=== PATIENT | female | born 1940 | race Caucasian/White ===

== ENCOUNTER → 2020-05-03 | Outpatient (CLI) | payer MEDICARE, OTHER, SELFPAY | END | disposition home or self-care (01) | LOC: LABSPEC 13:47 | DX: Z01.818 Encounter for other preprocedural examination (principal) | CPT/HCPCS: 87635; C9803; G2023; U0003 ==

== ENCOUNTER 2022-04-11 11:23 | Emergency (ER) | payer MEDICARE, OTHER, SELFPAY ==
[2022-04-11] VITALS (7 sets, daily range): BP systolic 128–160; BP diastolic 60–97; PULSE 67–76; RESP 14–18; TEMP 37.1; O2SAT 95–100; BMI 38.7
--- NOTE | 2022-04-11 11:27 | NURSING ---
NO OLD EKGS
--- NOTE | 2022-04-11 12:15 | EDS_ITS ---
HPI History of Present Illness Chief Complaint: Chest Pain Informant: patient Onset/Context/Timing Onset: Today Activity at onset: sudden and rest Timing: Continuous Quality: Positive for Heaviness Location: Substernal Worsened By: Nothing Relieved By: NTG Associated Symptoms: Positive for Nausea, Lightheadedness and Acid Reflux; Negative for Vomiting, Diaphoresis, Dyspnea, Cough, Fever or Palpitations Narrative Narrative: Patient presents with chest pain that began today. Patient states she was sitting when her pain began. Patient states it began rather suddenly. Patient describes as a heaviness. Patient states it is over the substernal area. Patient states it got better with nitroglycerin that was given by EMS. Patient states nothing makes it worse. Patient admits to some nausea but denies any vomiting. Patient also admits to some lightheadedness and dizziness with the pain. Patient also states she has some reflux today. Patient denies any cough or shortness of breath. CVD Risk Factors: Positive for Hypertension and Diabetes; Negative for Hypercholesterolemia, Family History 1' </=55 or Smoking PE Risk Factors: Negative for Recent Travel/Surgery, Recent Immobilization, Prior DVT or PE, Cancer or OCP + Smoking + >/=35 [facility] Medical History (Updated 04/11/22 @ 16:[address] Carlitos Mario, DO) Afib Anemia Anxiety and depression Aortic valve calcification ARDS (adult respiratory distress syndrome) Carotid artery stenosis Chronic kidney disease (CKD) CVA (cerebral vascular accident) Degenerative cervical spinal stenosis Degenerative lumbar spinal stenosis Diabetes mellitus, type II Fatty liver Fibromyalgia GERD (gastroesophageal reflux disease) Goiter HTN (hypertension) Hyperlipidemia Hyperparathyroidism Hypothyroidism IBS (irritable bowel syndrome) Mitral valve regurgitation Obesity THA (obstructive sleep apnea) Primary oral squamous cell carcinoma RLS (restless legs syndrome) Trismus Home Medications amitriptyline 50 mg tablet 50 mg PO QHS 04/11/22 [History Last Taken Unknown] aspirin 81 mg chewable tablet 81 mg PO DAILY 04/11/22 [History Last Taken Unknown] calcitriol 0.25 mcg capsule 0.25 mcg PO DAILY 04/11/22 [History Last Taken Unknown] carvedilol 25 mg tablet 25 mg PO BID 04/11/22 [History Last Taken Unknown] cetirizine 10 mg capsule 10 mg PO DAILY 04/11/22 [History Last Taken Unknown] clonazepam 0.5 mg tablet 0.5 mg PO QHS 04/11/22 [History Last Taken Unknown] docusate sodium 100 mg capsule 100 mg PO DAILY 04/11/22 [History Last Taken Unknown] duloxetine 60 mg capsule,delayed release 60 mg PO DAILY 04/11/22 [History Last Taken Unknown] glimepiride 1 mg tablet (Amaryl) 1 mg PO DAILY 04/11/22 [History Last Taken Unknown] hydrocodone-acetaminophen 5-325mg 5mg-325mg 1 tab PO Q8H PRN Pain 04/11/22 [History Last Taken Unknown] isosorbide mononitrate 30 mg tablet,extended release 24 hr 30 mg PO DAILY 04/11 [History Last Taken Unknown] levothyroxine 50 mcg tablet 50 mcg PO DAILY 04/11/22 [History Last Taken Unknown] losartan 25 mg tablet (Cozaar) 25 mg PO DAILY 04/11/22 [History Last Taken Unknown] nitroglycerin 0.4 mg sublingual tablet (Nitrostat) 0.4 mg sublingual Q5M PRN Pain 04/11/22 [History Last Taken Unknown] nystatin 100,000 unit/mL oral suspension 5 ml buccal TID 04/11/22 [History Last Taken Unknown] pantoprazole 40 mg tablet,delayed release 40 mg PO DAILY 04/11/22 [History Last Taken Unknown] pitavastatin calcium 2 mg tablet (Livalo) 2 mg PO QPM 04/11/22 [History Last Taken Unknown] pregabalin 100 mg capsule (Lyrica) 100 mg PO BID 04/11/22 [History Last Taken Unknown] ropinirole 4 mg tablet 4 mg PO QHS 04/11/22 [History Last Taken Unknown] Allergy/AdvReac Type Severity Reaction Status Date / Time Penicillins Allergy Rash Verified 04/11/22 11:33 gluten AdvReac Upset Verified 04/11/22 11:33 Stomach levofloxacin [From Levaquin] AdvReac Upset Verified 04/11/22 11:33 Stomach STEROIDS AdvReac Other Uncoded 04/11/22 11:33 Family History no significant family his no significant family history Surgical History (Updated 04/11/22 @ 12:[address] Carlitos Mario DO) History of coronary artery bypass graft Social History Smoking Status: Never smoker ROS ROS ED Constitutional Constitutional ED: Denies chills or fever(s) Eyes Eyes: Denies blurry vision or change in vision ENT ENT ED: Denies rhinorrhea or sore throat Cardiovascular Cardiovascular: Reports chest pain; Denies palpitations Respiratory/Chest Respiratory/Chest: Denies cough or dyspnea Gastrointestinal Gastrointestinal: Reports nausea; Denies abdominal pain or vomiting Genitourinary Genitourinary ED: Denies dysuria or hematuria Musculoskeletal Musculoskeletal: Denies back pain or neck pain Integumentary Denies abscess or rash Neurologic Neurologic: Denies headache(s) or weakness Allergic/Immunologic Allergic/Immunologic ED: Denies mouth swelling or urticaria EXAM Physical Exam Const Vital Signs: 04/11/22 11:25 04/11/22 11:28 04/11/22 12:25 Temperature 98.7 F Temperature Source Temporal Pulse Rate 70 Respiratory Rate 16 Respiratory Effort Normal Non-Labored Blood Pressure 132/60 H Blood Pressure Mean 84 Pulse Ox 95 100 Oxygen Delivery Method Room Air Room Air 04/11/22 12:23 04/11/22 13:00 04/11/22 14:00 Temperature Temperature Source Pulse Rate 67 72 68 Respiratory Rate 15 16 18 Respiratory Effort Blood Pressure 128/69 H 154/76 H 157/60 H Blood Pressure Mean 88 102 92 Pulse Ox 98 98 96 Oxygen Delivery Method Room Air Room Air 04/11/22 15:00 Temperature Temperature Source Pulse Rate 71 Respiratory Rate 14 Respiratory Effort Blood Pressure 158/75 H Blood Pressure Mean 102 Pulse Ox 97 Oxygen Delivery Method Room Air Positive well nourished, well developed and obese General Appearance ED: well developed and NAD Nutritional Appearance: obese HEENT normocephalic and atraumatic Eyes PERRL and EOMs intact bilaterally Neck supple and no JVD Chest Wall palpation of chest normal Resp normal respiratory effort and clear to auscultation bilaterally Effort and Inspection: Negative for respiratory distress Cardio regular rate and regular rhythm Heart Sounds: murmur systolic GI normal to inspection, nondistended, normoactive bowel sounds, soft to palpation, non-tender and non-distended Extremity normal to inspection General Extremety ED: Negative for edema or tenderness General Extremity: Negative for edema Neuro oriented x3, CN's II-XII intact bilaterally and no sensory deficits noted Sensorium / Orientation: awake and alert Motor Exam: strength 5/5 throughout Psych mental status grossly normal Heart Score History: Slightly/Non-Suspicious ECG: Normal Age: >/= 65 years Risk Factors: >/= 3 Risk Factors or History of CAD Troponin: </= Normal Limit Score: 4 MDM MDM MDM Narrative Medical decision making narrative: EKG was obtained. On my interpretation, it showed a sinus rhythm with first- degree AV block with a rate of 63. QRS interval, and QTc intervals were normal. [place] was normal. There are no acute ST or T wave changes. Portable 1 view chest x-ray was obtained. On my interpretation, lung yanes are clear. There is normal cardiac silhouette. Bony thorax is normal. There is no acute process noted. Radiologist also interpreted the x-ray and agrees. CBC was within normal limits. Basic metabolic profile was essentially within normal limits. High-sensitivity troponin was normal at 4. 2-hour repeat high-sensitivity troponin was normal at 7. Patient feels better on reevaluation. Patient was advised of her findings. Patient was instructed to follow-up with her primary care physician and tax accountant in 5 to 7 days. Patient understood and was agreeable with the plan. All questions were answered. Lab Data Attestation: I reviewed the patient's lab results. Labs: Laboratory Results - last 24 hr 04/11/22 04/11/22 04/11/22 11:10 11:10 14:36 WBC 6.6 RBC 4.26 Hgb 11.3 L Hct 36.7 L MCV 86.2 MCH 26.5 L MCHC 30.8 L RDW Std Deviation 56.8 H RDW Coeff of Mnan 17.8 H Plt Count 289 MPV 11.6 Immature Gran % (Auto) 0.500 Neut % (Auto) 61.9 Lymph % (Auto) 23.4 [place] % (Auto) 9.5 Eos % (Auto) 4.1 Baso % (Auto) 0.6 Absolute Neuts (auto) 4.1 Absolute Lymphs (auto) 1.53 Nucleated RBC % 0 Sodium 140 Potassium 4.1 Chloride 106 Carbon Dioxide 30.0 Anion Gap 4 L BUN 20 H Creatinine 1.01 Estim Creat Clear Calc 36.75 Est GFR (MDRD) Af Amer 68 Est GFR (MDRD) Non-Af 56 L BUN/Creatinine Ratio 19.8 Glucose 124 H Calcium 9.3 Troponin I High Sens 4 7 Radiography Chest X-Ray - ED: 1 View, Read by ED Physician, Read by Radiologist and No Acute Disease Diagnostic Testing: Clinical Impression(s) from Imaging Studies Chest X-Ray 04/11/22 12:35 IMPRESSION: No evidence of acute cardiopulmonary process. Electronically Signed: Romulo Whiteside DO at 12:56 EDT , EKG Initial EKG: Attestation: I personally reviewed and interpreted this EKG as follows: Interpretation: Sinus Rhythm (63 with first-degree AV block) and No Acute Injury Pattern Discharge Plan Triage Chief Complaint: Chest Pain ED Provider: Carlitos Mario Dx/Rx/DC Orders Clinical Impression: Chest pain Instructions: ED Chest Pain, Uncertain Cause Prescriptions: No Action carvedilol 25 mg Tablet 25 mg PO BID Rx Instructions: must administer with a meal/food hydrocodone-acetaminophen [[place]] 5-325 mg Tablet 1 tab PO Q8H PRN (Reason: Pain) isosorbide mononitrate [Imdur] 30 mg Tablet Extended Release 24 Hr 30 mg PO DAILY clonazepam 0.5 mg Tablet 0.5 mg PO QHS Rx Instructions: administer 30 minutes before bedtime amitriptyline 50 mg Tablet 50 mg PO QHS glimepiride [Amaryl] 1 mg Tablet 1 mg PO DAILY docusate sodium 100 mg Capsule 100 mg PO DAILY aspirin 81 mg Tablet,Chewable 81 mg PO DAILY calcitriol 0.25 mcg Capsule 0.25 mcg PO DAILY duloxetine 60 mg Capsule,Delayed Release(Dr/Ec) 60 mg PO DAILY cetirizine 10 mg Capsule 10 mg PO DAILY nystatin 100,000 unit/mL Suspension 5 ml BUCCAL TID Rx Instructions: administer 1/2 of dose in each side of the mouth levothyroxine 50 mcg Tablet 50 mcg PO DAILY pantoprazole 40 mg Tablet,Delayed Release (Dr/Ec) 40 mg PO DAILY losartan [Cozaar] 25 mg Tablet 25 mg PO DAILY nitroglycerin [Nitrostat] 0.4 mg Tablet, Sublingual 0.4 mg SUBLINGUAL Q5M PRN (Reason: Pain) Rx Instructions: do not exceed 3 doses per episode ropinirole [Requip] 4 mg Tablet 4 mg PO QHS Rx Instructions: administer 1-3 hours before bedtime pregabalin [Lyrica] 100 mg Capsule 100 mg PO BID Livalo 2 mg Tablet 2 mg PO QPM Primary Care Provider: GODWIN COVARRUBIAS Referrals: [facility] Doctor,Out of [NON-STAFF] - 5-7 Days Disposition Disposition: Home, Self Care
--- NOTE | 2022-04-11 12:21 | EKG12_ITS ---
Test Reason : CHEST PAIN Blood Pressure : / mmHG Vent. Rate : 063 BPM Atrial Rate : 063 BPM P-R Int : 240 ms QRS Dur : 090 ms QT Int : 420 ms P-R-T Axes : 011 017 054 degrees QTc Int : 429 ms Sinus rhythm with 1st degree A-V block Poor R wave progression Confirmed by ANNALEE SHEETS, STEVENSON ([id number]), department editor ESPERANZA SAMUEL ([id number]) on 04/13/2022 11:30:12 AM Referred By: KAYA Confirmed By:STEVENSON MANTILLA MD
[2022-04-11 12:35] LABS: Absolute Lymphocyte Count 1.53 X10^3/uL (0.83-4.51); Absolute Neutrophil Count 4.1 X10^3/uL (2.0-7.7); Basophil# 0.04 X10^3/uL; Basophil% 0.6 % (0-1); Eosinophil# 0.27 X10^3/uL; Eosinophils% 4.1 % (0-5); Hematocrit 36.7 % (37-47); Hemoglobin 11.3 g/dL (12.0-15.0); Lymphocyte # 1.53 X10^3/ul (0.83-4.51); Lymphocyte % 23.4 % (19-41); Mean Corp Hgb Conc 30.8 g/dL (32-36); Mean Corpuscular Hgb 26.5 pg (27.0-32.0); Mean Corpuscular Volume 86.2 fL (81-99); Mean Platelet Vol. 11.6 fl (6.2-12.0); Monocyte# 0.62 X10^3/uL; Monocyte% 9.5 % (0-10); NRBC Flagged by Analyzer 0 % (0-5); Neutrophil # 4.06 X10^3/uL (2.7-7.7); Neutrophil % 61.9 % (47-70); Platelet Count 289 K/mm3 (150-450); RBC Distribution Width CV 17.8 % (11.6-14.6); RBC Distribution Width SD 56.8 fl (35.1-43.9); Red Blood Count 4.26 M/mm3 (4.2-5.4); White Blood Count 6.6 K/mm3 (4.4-11.0)
--- NOTE | 2022-04-11 12:35 | RAD_ITS ---
STUDY: X-RAY CHEST REASON FOR EXAM: Female, 81 years old. chest pain TECHNIQUE: Single AP portable view of the chest. COMPARISON: None. FINDINGS: Sternotomy wires are midline. The lungs are clear and expanded. There is no demonstrated pleural abnormality. Normal size heart. Normal mediastinum and kathia. Normal visualized pulmonary arteries. Normal visualized aortic arch and descending thoracic aorta. Normal visualized thoracic spine. Normal visualized ribs, clavicles, and shoulders. There is no demonstrated abnormality of the visualized soft tissue structures of the upper abdomen. RAD/Chest 1 View (Portable) IMPRESSION: No evidence of acute cardiopulmonary process. Electronically Signed: Romulo Whiteside DO at 12:56 EDT ,
[2022-04-11 12:52] LABS: Anion Gap 4 (5-15); BUN 20 mg/dL (7-18); BUN/Creat Ratio 19.8 RATIO (10-20); Calcium,Total 9.3 mg/dL (8.5-10.1); Chloride 106 mmol/L (98-107); Creatinine, Serum 1.01 mg/dL (0.55-1.02); EST Glomerular Filtration Rate 56 mL/min (>60); Est Glom Filt Rate - Afr Amer 68 mL/min (>60); Estimated Creatinine Clearance 36.75 ml/min; Glucose 124 mg/dL (74-106); Potassium 4.1 mmol/L (3.5-5.1); Sodium Level 140 mmol/L (136-145); Troponin-I HS (w/2H Reflex) 4 pg/mL (3.0-54.0)
[2022-04-11 14:30] LABS: Reflex Troponin-HS? (from REC) Y
[2022-04-11 15:13] LABS: Troponin-I HS 7 pg/mL (3.0-54.0)
== END 2022-04-11 16:21 | disposition home or self-care (01) ==
PROVIDERS: Emergency Provider Emergency Medicine; Visit Provider Emergency Medicine
DX: R07.9 Chest pain, unspecified (principal); E11.22 Type 2 diabetes mellitus with diabetic chronic kidney disease; I48.91 Unspecified atrial fibrillation; I44.0 Atrioventricular block, first degree; I12.9 Hypertensive chronic kidney disease with stage 1 through stage 4 chronic kidney disease, or unspecified chronic kidney disease; N18.9 Chronic kidney disease, unspecified; M79.7 Fibromyalgia; K21.9 Gastro-esophageal reflux disease without esophagitis; E78.5 Hyperlipidemia, unspecified; E03.9 Hypothyroidism, unspecified; E66.9 Obesity, unspecified; Z95.1 Presence of aortocoronary bypass graft; Z79.82 Long term (current) use of aspirin; Z79.84 Long term (current) use of oral hypoglycemic drugs; Z79.899 Other long term (current) drug therapy; Z86.73 Personal history of transient ischemic attack (TIA), and cerebral infarction without residual deficits
CPT/HCPCS: 36415; 71045; 80048; 84484; 85025; 93005; 99285; A4216